=== PATIENT | male | born 1995 | race Caucasian/White ===

== ENCOUNTER 2017-06-16 19:31 | Emergency (ER) | payer BC, OTHER ==
[~2017-06-16] VITALS: Ht 165.1 cm; Wt 31.0 kg
[2017-06-16 19:43] VITALS: TEMP 37; Ht 165.1 cm; Wt 31.0 kg
[2017-06-16] MEDS ORDERED: HYDROCODONE/ACETAMOPHEN 5/325MG TAB PO STA (20:09)
--- NOTE | 2017-06-16 20:45 | EMERGENCY ROOM VISIT NOTE ---
History First contact with patient: 20:00 Chief Complaint: BACK PAIN Stated Complaint: BACK PAIN History of Present Illness The patient is a 21 year old male who presents to the Emergency Room with complaints of back pain. The patient states he has had worsening pain in the right lower back with radiation to the right hip over the past 3 days. The patient has a history of back surgeries in 2012 in 2013 due to scoliosis. He had a metal jose inserted into his spine. The patient states that the pain has become unbearable. He rates the current discomfort a 9/10 and states that the pain makes it difficult for him to eat and sleep. His surgeries were performed at [facility] [address] in [place]. He does not currently follow up with anyone regarding his back. He is not taking any medication for pain at home. He denies any bowel or bladder dysfunction. He denies any numbness or weakness of the lower extremities. The pain radiates slightly into the right hip, but not all the way down the leg. 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 Review of Systems A complete 10 point review of systems was reviewed with the patient with pertinent positives and negatives as per history of present illness. All else were negative. 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 Vital signs stable. GENERAL: This is a 21-year-old male, in no acute distress, nondiaphoretic, well- developed well-nourished. HEAD: Normocephalic atraumatic. HEART: Regular rate and rhythm without murmurs gallops or rubs. LUNGS: Clear to auscultation bilaterally without wheezes, rales or rhonchi. MUSCULOSKELETAL: There is mild, vague tenderness to palpation in the right lumbar region. NEURO: Patient was alert and oriented to person place and time. Medical Decision & Procedures ER Provider Diagnostic Interpretation: L-SPINE MIN 4 VIEWS ROUTINE CLINICAL HISTORY: Low back pain. Previous surgery. COMPARISON: Lumbar spine radiographs May 29, 2014. FINDINGS: Mild levoscoliosis of the lumbar spine is noted. Extensive thoracolumbar spine fusion hardware is similar to exam of May 29, 2014. Hardware is partially imaged on this exam. There is no acute lumbar spine fracture. Bowel gas pattern is normal. Chronic left hip dislocation is noted with a shallow right acetabulum. IMPRESSION: 1. No acute lumbar spine fracture or subluxation. 2. Extensive thoracolumbar spine fusion hardware. Stable postoperative findings since exam of May 29, 2014. Medications Administered Medications (Trade) Dose Ordered Sig/Krysta Route Start Time Stop Time Status Last Admin Dose Admin Acetaminophen/ Hydrocodone Bitart ([place] 5/325 Tab) 1 tab NOW STAT PO 06/16/17 20:09 06/16/17 20:11 DC 06/16/17 20:16 1 TAB Acetaminophen/ Hydrocodone Bitart ([place] 5/325mg Home Pack) 1 homepack UD ONCE PO 06/16/17 21:15 06/16/17 21:16 DC 06/16/17 21:36 1 HOMEPACK Medical Decision The patient was evaluated as above. X-rays were obtained of the back. There are extensive postoperative changes but no acute findings. The patient is afebrile. There is nothing to suggest infection on exam. The patient was given information for local back surgeon and instructed to follow-up. He was given a home pack and prescription of [place] for pain. He verbalized understanding of my assessment and treatment plan and was discharged home in good condition. [place] Drug Monitoring Program Search Results: patient reviewed within database, no issues identified Medication Reconcilliation Current Medication List: was personally reviewed by me Blood Pressure Screening Patient's blood pressure: Normal blood pressure Impression Primary Impression: Lumbar back pain Departure Information Dispostion Home / Self-Care Condition GOOD Prescriptions Hydrocodone/Acetaminophen 5MG/325MG ([place] 5MG/325MG) Tab 1-2 TABLET PO Q4H Y for Pain, #15 TAB For Initial Treatment Prov: Yasemin Bowen ., BENJIE 06/16/17 Referrals No Doctor, Assigned (PCP) Jose Maldonado D.O. Patient Instructions My [facility] Additional Instructions You have been treated in the Emergency Department for Back Pain. You have received pain medicine in the emergency department which impairs your ability to operate a vehicle. It is illegal for you to drive after receiving these medicines. You have been prescribed [place] to be used for pain control. This is a narcotic medication. You cannot drive or consume alcohol while on this medicine. This medicine should only be used for pain that cannot be controlled with over-the- counter pain medicines. For pain control, you can use the following lyod-dty-ubyzakp medicines (if >12 yo): - Regular strength (325mg/tab) Tylenol (acetaminophen) 2 tabs every 4-6 hours as needed. Do not exceed 12 tablets in a 24 hour period. Avoid taking more than 4 grams (4000 mg) of Tylenol per day. This includes any other sources of acetaminophen you may take on a regular basis. - Regular strength (200 mg/tab) Advil (ibuprofen) 1-2 tabs every 4-6 hours as needed. Do not exceed a dose of 3200 mg per day. If this is an acute injury, ice can be applied to the area of pain for the first 3 days to help decrease pain and inflammation. After the first 3 days, a heating pad can be used over the area for continued soothing relief. You should schedule a follow-up appointment in 2-3 days with your Primary Care Provider for further evaluation and treatment of your back pain. You may follow up with Dr. Maldonado, who is a internal corrosion specialist regarding your back pain. Return to the Emergency Department if your current symptoms worsen despite treatment course outlined above, or if you develop any of the following symptoms : intractable pain despite aforementioned treatment course, loss of control of your bowel or bladder, numbness or tingling in your groin, or development of a fever.
[2017-06-16] MEDS ORDERED: NORCO 5/325MG HOME PACK PO ONE (21:15)
[2017-06-16] MEDS ORDERED: HYDR-5688 PO (21:29)
[2017-06-16 21:39] VITALS: BP 125/78; PULSE 77; O2SAT 96
== END 2017-06-16 21:39 | disposition home or self-care (01) ==
LOC: C.EDB 19:31 → C.EDA 21:39
DX: M54.5 Low back pain (principal); Z87.891 Personal history of nicotine dependence

== ENCOUNTER 2023-06-09 12:40 | Observation (INO) ==
--- NOTE | 2023-06-09 13:10 | ED Triage Note ---
Date of Service June 09, 2023 History of Present Illness This patient was briefly evaluated while in triage. An abbreviated physical exam was performed. This patient is a 27-year-old Male who presents to the ED for evaluation of a possible syncopal episode. In a power wheelchair, father found him going in circles upstairs mumbling and not making sense. lasted about 15 minutes, no seizure like activity or history of seizures. happened a year ago possibly related to dehydration. Physical Exam CONSTITUTIONAL: in no acute pain or distress, resting comfortably SKIN: pink, warm, dry CARDIAC: regular rate and rhythm RESPIRATORY: in no respiratory distress, lungs clear to auscultation NEURO: no focal deficits, alert and oriented x 3 Initial orders for labs and / or imaging were placed and patient was placed in the waiting area until a bed is available. Please see further documentation for the full ED course.
[2023-06-09 14:26] LABS: Basophils # (auto) 0.02 K/uL (0.00-0.20); Basophils % (auto) 0.2 %; Eosinophils # (auto) 0.02 K/uL (0.00-0.50); Eosinophils % (auto) 0.2 %; Hematocrit (blood only) 46.3 % (42.0-52.0); Hemoglobin 15.8 g/dl (14.0-18.0); Immature Granulocytes # (auto) 0.04 K/uL (0.01-0.20); Immature Granulocytes % (auto) 0.4 %; Lymphocytes # (auto) 0.63 K/uL (1.20-3.40); Lymphocytes % (auto) 5.5 %; Mean Corpuscular Hemoglobin 32.4 pg (25.0-34.0); Mean Corpuscular Hgb Conc 34.1 g/dL (32.0-36.0); Mean Corpuscular Volume 94.9 fL (80.0-100.0); Mean Platelet Volume 10.2 fL (9.4-12.4); Monocytes # (auto) 0.71 K/uL (0.11-0.59); Monocytes % (auto) 6.2 %; Neutrophils # (auto) 9.97 K/uL (1.40-6.50); Neutrophils % (auto) 87.5 %; Platelet Count 210 K/uL (130-400); RDW Coefficient of Variation 13.4 % (11.5-14.5); RDW Standard Deviation 47.3 fL (36.4-46.3); Red Blood Count 4.88 M/uL (4.70-6.10); White Blood Count 11.39 K/ul (4.8-10.8)
[2023-06-09 14:34] LABS: Alanine Aminotransferase 13 U/L (7-52); Albumin Globulin Ratio 1.7 (0.9-2); Albumin Level 4.6 gm/dl (3.4-5.0); Alkaline Phosphatase 50 U/L (34-104); Anion Gap 9 (3-11); Aspartate Aminotransferase 19 U/L (13-39); BUN Creatinine Ratio 21.9 (10-20); Bilirubin,Total 0.8 mg/dl (0.2-1.0); Blood Urea Nitrogen 7 mg/dl (6-23); Calcium 9.4 mg/dl (8.6-10.3); Carbon Dioxide 25 mmol/L (21-32); Chloride 103 mmol/L (98-107); Est GFR (African American) > 150.0 ml/min; Est GFR (Non-African American) > 150.0 ml/min; Globulin 2.7 gm/dl (2.5-4.0); Glucose 98 mg/dl (70-99(Fasting)); Magnesium 1.8 mg/dl (1.7-2.4); Potassium 4.1 mmol/L (3.5-5.1); Sodium 137 mmol/L (136-145); Total Protein 7.3 gm/dl (6.0-8.3)
--- NOTE | 2023-06-09 14:39 | Emergency Department Note ---
Impression & Plan Unresponsive episode ED Provider Note NAME: CORBY MEIER AGE: 27 SEX: M : 1995 ARRIVES VIA: Walk-In INFORMANT: Patient, ED PROVIDER(S): Dang Garcia MD CHIEF COMPLAINT: Episode of unresponsiveness HPI: This is a 27-year-old male with past medical history of arthrogryposis multiplex congenita, regular alcohol use, medical marijuana use presenting for episode of unresponsiveness. Patient is called by his father states that today patient woke up at his usual baseline. [place] very basically normal. However throughout the course of the day patient episode where he was unresponsive. As per father he heard a loud crash upstairs exam and later had another crash and went upstairs to find his son in his motorized wheelchair spinning in circles. The patient was reportedly unresponsive. His dad stopped the wheelchair and and his son was confused only saying things like "check Facebook ". Otherwise he notes no chest pain, shortness of breath, fever, chills, drug or alcohol use today, palpitations, pleurisy. ROS: See above HPI for pertinent positives & negatives. A total of 10 systems reviewed and were otherwise negative. PAST MEDICAL HISTORY: See Below PAST SURGICAL HISTORY: See Below FAMILY HISTORY: See Below SOCIAL HISTORY: See Below HOME MEDICATIONS: See Below ALLERGIES: See Below VITALS: See Below PHYSICAL EXAMINATION: General: resting comfortably in no acute distress Head: Normocephalic and atraumatic Eyes: Normal inspection, extraocular muscles intact, no conjunctival pallor Ear, nose, throat: Normal external exam Neck: Normal range of motion Respiratory: Patient is in no respiratory distress, lungs clear to auscultation bilaterally Cardiovascular: RRR without murmur appreciated GI: soft, nontender, no guarding or rebound Extremities: Lower extremity contracture without swelling Neuro: The patient awake and alert, appropriately conversive Skin: Warm, dry, and intact MEDICAL DECISION MAKING: This is a 27-year-old male with history as above presenting for episode of unresponsiveness/confusion. Patient's symptoms are concerning for syncope versus seizure. Patient has no tongue biting, no urinary incontinence, does have some slight confusion after the episode. Otherwise could be syncope as patient was unresponsive for about 5 minutes. He had no prodrome. Patient appears well without device abnormalities, no chest pain or shortness of breath. Patient's blood work is reviewed and shows no acute abnormalities. EKG reviewed showing no acute abnormalities. Patient appears well, has no current symptoms however there is no clear explanation. We discussed at length about neck steps including admission versus discharge with outpatient follow-up. Based on inability to rule out cardiac syncope versus seizure, patient and father more inclined to be admitted at this time. Chest Xray independently interpreted by me showing no pneumothorax, focal opacity, or pleural effusions. Will admit for further work-up. Triage Nursing notes reviewed. Prior medical records reviewed Vital Signs: reviewed and remarkable for no significant abnormalities Differential diagnosis: Cardiogenic syncope, seizure, orthostatic syncope, vasovagal ER treatment provided: See below Diagnostics interpreted by me: ECG: ECG independently interpreted by me with normal sinus rhythm, rate of 70, right axis deviatio, normal TX, normal QRS, normal QTc, no ST segment elevations consistent with STEMI criteria Cardiac Monitoring: An order was placed for continuous cardiac monitoring. The monitor shows a rate of 85 with sinus rhythm. Laboratory studies: As stated above and show below. Imaging studies: See below. Radiographic imaging was reviewed by myself Consultation(s): None Past Med/Surg History Medical History (Updated 06/09/23 @ 22:58 by Dang Garcia MD) Arthrogryposis multiplex congenita HX OF [facility], PT HAS HAD MULTIPLE LIMB SURGERIES WELL THORACIC/LUMBAR FUSION S/T DX. PT IS WHEELCHAIR BOUND, INDEPENDANT WITH MOST ADL'S. Chronic back pain HX OF MULTIPLE BACK SURGERIES WITH FUSION Surgical History History of Rocco fundoplication History of surgery HX OF MULTIPLE LEG SURGERIES S/T [facility]. History of hand surgery X2, HX OF [facility] Fusion of spine THORACIC AND LUMBAR Family History Grandmother (Maternal) Diabetes Mother Hypertension Denies family history of Ovarian cancer Prostate cancer Myocardial infarction Breast cancer Colorectal cancer Social History Smoking Status: Never smoker Tobacco Type: Cigars Cigarettes Per Day: DAILY USE; Second Hand Exposure: No; Do You Dip or Chew Tobacco: No; Hx Alcohol Use: Yes (Frequent) Alcohol type: other Hx Substance Use: Yes Non-Prescribed Medications: Marijuana Substance Use Type Other:: Frequent Preferred Language: Kyrgyz Communication Ability: Effective Feather Separator Required: No Beliefs That Will Affect Care: None marital status: Single Current Living Situation: Family current occupational status: disabled Feels Safe at Home: Yes caffeine: Yes (soda) Dental Care, Regularly: No Physical Activity Frequency: Does not Exercise Seatbelt Use: always Sunscreen Use: No Assistive Devices: None Allergies Allergies Allergy/AdvReac Type Severity Reaction Status Date / Time No Known Allergies Allergy Verified 06/09/23 17:05 Home Meds Home Medications Medication Instructions Recorded Confirmed No Known Home Medications 01/18/22 06/09/23 Results & Data (ED) Vital Signs Vital Signs - 24 hr 06/09/23 13:03 06/09/23 14:43 06/09/23 14:43 Temperature 36.4 C L Temperature Source Skin Pulse Rate 75 Pulse Rate [Bilateral] 68 Respiratory Rate 20 18 Respiratory Effort / Characteristics Non-Labored Spontaneous Respiratory Depth Normal Respiratory Pattern Regular Blood Pressure 159/97 H Blood Pressure [Right Arm] 116/74 Blood Pressure Mean 117 Blood Pressure Mean [Right Arm] 88 Pulse Oximetry 95 98 98 Oxygen Delivery Method Room Air Room Air Room Air Sepsis Recent Fever Within 48 Hours No Sepsis New/Unexplained Change in Mental Status N/A Sepsis Action Taken by Nursing No Action Required 06/09/23 16:59 06/09/23 18:00 Temperature Temperature Source Pulse Rate Pulse Rate [Bilateral] 82 83 Respiratory Rate 18 20 Respiratory Effort / Characteristics Respiratory Depth Respiratory Pattern Blood Pressure Blood Pressure [Right Arm] 134/84 125/75 Blood Pressure Mean Blood Pressure Mean [Right Arm] 100 91 Pulse Oximetry 98 100 Oxygen Delivery Method Room Air Room Air Sepsis Recent Fever Within 48 Hours Sepsis New/Unexplained Change in Mental Status Sepsis Action Taken by Nursing Laboratory Data 06/09/23 13:56 06/09/23 13:56 Lab Results 06/09/23 Range/Units 13:56 WBC 11.39 H (4.8-10.8) K/ul RBC 4.88 (4.70-6.10) M/uL Hgb 15.8 (14.0-18.0) g/dl Hct 46.3 (42.0-52.0) % MCV 94.9 (80.0-100.0) fL MCH 32.4 (25.0-34.0) pg MCHC 34.1 (32.0-36.0) g/dL RDW Std Deviation 47.3 H (36.4-46.3) fL RDW Coeff of Cristian 13.4 (11.5-14.5) % Plt Count 210 (130-400) K/uL MPV 10.2 (9.4-12.4) fL Immature Gran % (Auto) 0.4 % Neut % (Auto) 87.5 % Lymph % (Auto) 5.5 % [place] % (Auto) 6.2 % Eos % (Auto) 0.2 % Baso % (Auto) 0.2 % Neut # (Auto) 9.97 H (1.40-6.50) K/uL Lymph # (Auto) 0.63 L (1.20-3.40) K/uL [place] # (Auto) 0.71 H (0.11-0.59) K/uL Eos # (Auto) 0.02 (0.00-0.50) K/uL Baso # (Auto) 0.02 (0.00-0.20) K/uL Immature Gran # (Auto) 0.04 (0.01-0.20) K/uL Sodium 137 (136-145) mmol/L Potassium 4.1 (3.5-5.1) mmol/L Chloride 103 (98-107) mmol/L Carbon Dioxide 25 (21-32) mmol/L Anion Gap 9 (3-11) BUN 7 (6-23) mg/dl Creatinine 0.32 L (0.6-1.4) mg/dl Est Cr Clr Drug Dosing Not Reportable Est GFR ( Amer) > 150.0 ml/min Est GFR (Non-Af Amer) > 150.0 ml/min BUN/Creatinine Ratio 21.9 H (10-20) Glucose 98 (70-99(Fasting)) mg/dl Calcium 9.4 (8.6-10.3) mg/dl Magnesium 1.8 (1.7-2.4) mg/dl Total Bilirubin 0.8 (0.2-1.0) mg/dl AST 19 (13-39) U/L ALT 13 (7-52) U/L Alkaline Phosphatase 50 (34-104) U/L Troponin I High Sens 5.6 (0-20) pg/ml Total Protein 7.3 (6.0-8.3) gm/dl Albumin 4.6 (3.4-5.0) gm/dl Globulin 2.7 (2.5-4.0) gm/dl Albumin/Globulin Ratio 1.7 (0.9-2) TSH 2.007 (0.300-4.500) uIu/ml Prolactin 14.69 ng/ml Imaging Data Radiologist's Impression: Chest X-Ray 06/09/23 16:46 SINGLE VIEW CHEST CLINICAL HISTORY: Unresponsive FINDINGS: An AP, portable, semierect chest radiograph is compared to study dated 02/15/2022. The cardiomediastinal silhouette is unremarkable. The lungs and pleural spaces are clear. No pneumothorax is seen. The skeletal structures are osteopenic. The bony thorax is grossly intact. Thoracolumbar spinal rods are in place. Chronic deformity is seen in the shoulders. IMPRESSION: No active disease in the chest. ACT 112: Negative or not required by law. Electronically signed by: Juan R Garza M.D. 06/09/2023 5:[address] 06/09/23 17:57 CT SCAN OF THE BRAIN WITHOUT IV CONTRAST CLINICAL HISTORY: Seizure. COMPARISON STUDY: CT of the brain dated 02/15/2022. TECHNIQUE: Unenhanced axial CT scan of the brain is performed from the vertex to the skull base. A dose lowering technique was utilized adhering to the principles of ALARA. CT DOSE: 625.8 mGy.cm FINDINGS: Brain parenchyma: The brain parenchyma is normal in appearance. There is no hemorrhage, mass effect, or evidence of acute territorial ischemia by CT criteria. Nunez-white matter differentiation is preserved. No extra-axial fluid collection is seen. Ventricles, sulci, cisterns: Normal in configuration. Intracranial vasculature: The visualized intracranial vasculature at the skull base is normal in appearance. Calvarium: Unremarkable. Sinuses and mastoids: The visualized paranasal sinuses are clear. The mastoid air cells are well pneumatized. Orbits: The bony orbits are grossly intact. IMPRESSION: No acute intracranial abnormality. ACT 112: Negative or not required by law. Electronically signed by: Juan R Garza M.D. 06/09/2023 6:45 PM Discharge Plan Visit Data Chief Complaint: Syncope (Near Syncope) Stated Complaint: SYCONPE, VERBAL, CONFUSION ED Provider: Dang Garcia Discharge Problem: Unresponsive episode Patient Disposition: Admitted As Inpatient Discharge Instructions Interventions: ED Discharge Assessment Last Done: 06/09/23 20:27
[2023-06-09 14:47] LABS: Thyroid Stimulating Hormone 2.007 uIu/ml (0.300-4.500)
[2023-06-09 15:09] LABS: Troponin I High Sensitivity 5.6 pg/ml (0-20)
--- NOTE | 2023-06-09 15:27 | Electrocardiogram Report ---
Test Reason : Blood Pressure : / mmHG Vent. Rate : 070 BPM Atrial Rate : 070 BPM P-R Int : 112 ms QRS Dur : 098 ms QT Int : 362 ms P-R-T Axes : 037 116 077 degrees QTc Int : 390 ms Normal sinus rhythm Right axis deviation Abnormal ECG When compared with ECG of 15-FEB-2022 20:27, No significant change was found Confirmed by Andriy Betts ([id number]) on 06/09/2023 3:27:44 PM Referred By: Confirmed By:Andriy Betts
--- NOTE | 2023-06-09 17:37 | History & Physical Report ---
Date of Service June 09, 2023 Assessment & Plan (1) Unresponsive episode: Plan: Last episode previous put down to dehydration and alcohol/marijuana use. No alcohol/marijuana on this occasion and concerningly he was feeling well before this with no preceding symptoms Differential of seizure vs syncope - Favor seizure since syncope without preceding symptoms suggests arrhythmia and would be unusual to have an arrhythmia twice with one year in between, prolonged postictal phase also favors seizure Possible syncope - monitor on telemetry for arrhythmia, TTE Possible seizure (found in a postictal state) - CT head, Brain MRI w/wo IV contrast, EEG, consult neurology (2) Scoliosis: (3) History of Rocco fundoplication: Plan: Difficulty with vomiting but no difficulty in eating all food (4) Arthrogryposis multiplex congenita: Plan: Chronic flexion deformities (5) Chronic back pain: (6) Fixed dilated pupil of left eye: Plan: Noted on exam and on prior PCP notes - this is chronic Plan VTE Prophylaxis - at baseline Diet - regular Disposition - observation to med/tele Admission and Anticipated Discharge Date Admission Date: June 09, 2023 History of Present Illness Chief Complaint: Unresponsive episode Primary Care Provider: DO Hudson Qiu Jennifer is a 27 year old male with arthrogryposis multiplex congenita who presents to the ER with an unresponsive episode. He has no memory of the event and does not remember any preceding symptoms. Was feeling well prior. The next thing he remembers is being in the car on the way to the hospital. His father at bedside was present around the time it happened but not during the start of his change in his mental status. His father left him downstairs to turn on the shower, he heard a thud but assumed it to be the dogs as they ran up the stairs. On returning back downstairs he wound his son with decreased responsiveness, not following commands and talking nonsense saying things like "check facebook". This was only 5-10 minutes after he left his son downstairs. Approximately half way to the hospital in the car he started talking more sense. No known complete loss of consciousness. He reports currently feeling back to his baseline. The patient reports having a similar event approximately a year ago when he also came to the ER. On that visit he had been drinking alcohol. Ketones were increased, Sodium decreased. Therefore it was put down to his alcohol and marijuana use with possible some dehydration. Although notable his alcohol level was normal when he came to the ER. On that occasion he was again found by his father shortly after the change in mental status. The patient was hunched over in his wheelchair with eyes upon, having difficulty getting the right words out and drooling out of the side of his mouth. The ambulance took an hour to get to them at which point he was coming back round to normal. Allergies Allergy/AdvReac Type Severity Reaction Status Date / Time No Known Allergies Allergy Verified 06/09/23 17:05 Home Medications Medication Instructions Recorded Confirmed Type No Known Home Medications 01/18/22 06/09/23 History Past Med/Surg History Medical History (Updated 06/09/23 @ 22:58 by Dang Garcia MD) Arthrogryposis multiplex congenita HX OF [facility], PT HAS HAD MULTIPLE LIMB SURGERIES WELL THORACIC/LUMBAR FUSION S/T DX. PT IS WHEELCHAIR BOUND, INDEPENDANT WITH MOST ADL'S. Chronic back pain HX OF MULTIPLE BACK SURGERIES WITH FUSION Surgical History History of Rocco fundoplication History of surgery HX OF MULTIPLE LEG SURGERIES S/T [facility]. History of hand surgery X2, HX OF [facility] Fusion of spine THORACIC AND LUMBAR Family History Grandmother (Maternal) Diabetes Mother Hypertension Denies family history of Ovarian cancer Prostate cancer Myocardial infarction Breast cancer Colorectal cancer Social History Smoking Status: Current some day smoker Tobacco Type: Cigars Cigarettes Per Day: DAILY USE; Second Hand Exposure: No; Do You Dip or Chew Tobacco: No; Hx Alcohol Use: Yes Alcohol type: beer and hard liquor Hx Substance Use: Yes Non-Prescribed Medications: Marijuana Substance Use Type Other:: Frequent Preferred Language: Trinidadian Communication Ability: Effective [employer] Service Technician Required: No Beliefs That Will Affect Care: None marital status: Single Current Living Situation: Parent Current Living Situation Comment: lives with father who is primary caregiver current occupational status: disabled Other Information That Helps Us Care for You: No Feels Safe at Home: Yes Safety Concerns: Feels Safe At This Time caffeine: Yes (soda) Dental Care, Regularly: No Physical Activity Frequency: Does not Exercise Seatbelt Use: always Sunscreen Use: No Assistive Devices: Slide Board and Wheelchair Review of Systems Review of Systems: All systems reviewed & are unremarkable except as noted in HPI & below Physical Exam Constitutional: + not well nourished and no acute distre ss Eyes: + abnormal light reflex (left pupil dila bill) ENMT: Mouth: + poor dentition Respiratory: normal respiratory effort, lungs clear to auscultation Cardiovascular: RRR, no murmur, no edema Gastrointestinal (Abdomen): normal bowel sounds, soft, nontender, no hepatosplenomegaly Musculoskeletal: chronic flexion deformity and muscle wasting of al 4 limbs Skin: no rashes, warm and dry (no areas of cellulitis noted) Neurologic: moves all extremities and awake; not confused Psychiatric: A+Ox3, euthymic affect Genitourinary: no CVA tenderness Results & Data Results & Data Vital Signs (Past 12 Hours) Vital Signs Temp Pulse Pulse Resp BP BP Pulse Ox 06/09/23 16:59 82 18 134/84 98 06/09/23 14:43 98 06/09/23 14:43 68 18 116/74 98 06/09/23 13:03 36.4 C L 75 20 159/97 H 95 O2 Del Method 06/09/23 16:59 Room Air 06/09/23 14:43 Room Air 06/09/23 14:43 Room Air 06/09/23 13:03 Room Air Laboratory Results Abnormal lab results 06/09/23 Range/Units 13:56 WBC 11.39 H (4.8-10.8) K/ul RDW Std Deviation 47.3 H (36.4-46.3) fL Neut # (Auto) 9.97 H (1.40-6.50) K/uL Lymph # (Auto) 0.63 L (1.20-3.40) K/uL Oliver # (Auto) 0.71 H (0.11-0.59) K/uL Creatinine 0.32 L (0.6-1.4) mg/dl BUN/Creatinine Ratio 21.9 H (10-20) Diagnostic Findings SINGLE VIEW CHEST CLINICAL HISTORY: Unresponsive FINDINGS: An AP, portable, semierect chest radiograph is compared to study dated 02/15/2022. The cardiomediastinal silhouette is unremarkable. The lungs and pleural spaces are clear. No pneumothorax is seen. The skeletal structures are osteopenic. The bony thorax is grossly intact. Thoracolumbar spinal rods are in place. Chronic deformity is seen in the shoulders. IMPRESSION: No active disease in the chest. Medications Administered ER Medications Given: None ECG Rate (beats per minute): 70 Rhythm: normal sinus Findings: + other (right axis deviation) Comparison ECG Date: from (February 15, 2022) Change: no significant change Code Status & VTE Plan Code Status Full VTE Prophylaxis Plan VTE Prophylaxis will be ordered: No PG Care Time/CCT Total # of Minutes Spent Total Time Spent with Patient: Total time spent is greater than 50% in coordination of care (as documented) at patient's floor/unit and/or counseling patient: Coding Level of Care Code 50575 INT INP/OBS CARE 2/55MIN Diagnoses Unresponsive episode R40.4 Scoliosis M41.9 History of Rocco fundoplication Z98.890 Arthrogryposis multiplex congenita Q74.3 Chronic back pain M54.9; G89.29 Fixed dilated pupil of left eye H57.04
--- NOTE | 2023-06-09 17:39 | XRay Report ---
SINGLE VIEW CHEST CLINICAL HISTORY: Unresponsive FINDINGS: An AP, portable, semierect chest radiograph is compared to study dated 02/15/2022. The cardi omediastinal silhouette is unremarkable. The lungs and pleural spaces are clear. No pneumothorax is s een. The skeletal structures are osteopenic. The bony thorax is grossly intact. Thoracolumbar spinal rods are in place. Chronic deformity is seen in the shoulders. IMPRESSION: No active disease in the chest. ACT 112: Negative or not required by law. Electronically signed by: Juan R Garza M.D. 06/09/2023 5:37 PM
--- NOTE | 2023-06-09 18:47 | CT Scan Report ---
CT SCAN OF THE BRAIN WITHOUT IV CONTRAST CLINICAL HISTORY: Seizure. COMPARISON STUDY: CT of the brain dated 02/15/2022. TECHNIQUE: Unenhanced axial CT scan of the brain is performed from the vertex to the skull base. A d ose lowering technique was utilized adhering to the principles of ALARA. CT DOSE: 625.8 mGy.cm FINDINGS: Brain parenchyma: The brain parenchyma is normal in appearance. There is no hemorrhage, mass effect, or evidence of acute territorial ischemia by CT criteria. Nunez-white matter differentiation is preser sid. No extra-axial fluid collection is seen. Ventricles, sulci, cisterns: Normal in configuration. Intracranial vasculature: The visualized intracranial vasculature at the skull base is normal in appe arance. Calvarium: Unremarkable. Sinuses and mastoids: The visualized paranasal sinuses are clear. The mastoid air cells are well pneu matized. Orbits: The bony orbits are grossly intact. IMPRESSION: No acute intracranial abnormality. ACT 112: Negative or not required by law. Electronically signed by: Juan R Garza M.D. 06/09/2023 6:45 PM
[2023-06-09 22:57] LABS: Appearance Urine Clear (Clear); Bacteria Urine Automated Negative (Negative); Bilirubin Urine Negative (Negative); Blood Urine Negative (Negative); Color Urine Yellow; Epithelial Cell Urine Auto 20-30 /lpf (0-5); Glucose Urine UA Negative (Negative); Ketones Urine 3+ (Negative); Leukocyte Esterase Urine Negative (Negative); Nitrite Urine Negative (Negative); RBC Urine Automated 0-4 /hpf (0-4); Specific Gravity Urine 1.014 (1.000-1.030); Urobilinogen Urine Negative (Negative); pH Urine 7.5 (4.5-7.5)
[2023-06-09 23:06] LABS: Protein Urine 1+ (Negative)
[2023-06-09] MEDS ORDERED: LACTATED RINGER'S 1,000 ML IV SCH (23:30)
[2023-06-09 23:39] LABS: Amphetamines+Metham, Urine Neg (Neg); Barbiturates, Urine Neg (Neg); Benzodiazepine, Urine Neg (Neg); Cocaine, Urine Neg (Neg); MDMA (Ecstacy), Urine Neg (Neg); Methadone, Urine Neg (Neg); Opiate, Urine Neg (Neg); Phencyclidine, Urine Neg (Neg)
[2023-06-10] MEDS ORDERED: GADOBUTROL 65ML VIAL IV ONE (00:04)
--- NOTE | 2023-06-10 02:11 | Magnetic Resonance Report ---
Exam(s): MRI HEAD IV Amt: 3.5cc gadavist EXAM: MR Head With Intravenous Contrast CLINICAL HISTORY: Reason for exam: possible seizure. TECHNIQUE: Magnetic resonance images of the head/brain with intravenous contrast in multiple planes. Mild motion artifact. CONTRAST: Patient received 3.5cc Gadavist of IV contrast COMPARISON: Head CT done earlier the same day. FINDINGS: Brain: No mass effect or acute infarct. No acute hemorrhage. Increased size and signal left hippocampus, nonspecific, can be seen from sequelae of seizures, or a cause of seizures. No reduced diffusion. Other etiologies such as artifact, hamartoma, and low grade tumor are also considerations. Mesial temporal sclerosis felt less likely as it is associated with hippocampal atrophy. Motion artifact limits detail. Consideration may be given to neurology consultation, MR spectroscopy/MR perfusion. No other abnormal signal in the brain parenchyma. No abnormal enhancement. No interval change, given differences in technique. Ventricles: No hydrocephalus or midline shift. Bones/joints: No skull lesion. Soft tissues: No scalp hematoma. Sinuses: Clear. Mastoid air cells: No mastoid effusion. IMPRESSION: 1. Increased size and signal left hippocampus, unclear etiology, though likely relates to patient's seizures. See above discussion. 2. No abnormal enhancement, acute infarct, bleed, or acute intracranial abnormality. 3. Mild motion artifact. Electronically signed by: Tosha Weinstein M.D. 06/10/23 02:09 AM
[2023-06-10 07:23] LABS: Basophils # (auto) 0.02 K/uL (0.00-0.20); Basophils % (auto) 0.3 %; Eosinophils # (auto) 0.03 K/uL (0.00-0.50); Eosinophils % (auto) 0.4 %; Hematocrit (blood only) 38.5 % (42.0-52.0); Hemoglobin 13.4 g/dl (14.0-18.0); Immature Granulocytes # (auto) 0.02 K/uL (0.01-0.20); Immature Granulocytes % (auto) 0.3 %; Lymphocytes % (auto) 11.3 %; Mean Corpuscular Hemoglobin 32.3 pg (25.0-34.0); Mean Corpuscular Hgb Conc 34.8 g/dL (32.0-36.0); Mean Corpuscular Volume 92.8 fL (80.0-100.0); Mean Platelet Volume 10.4 fL (9.4-12.4); Monocytes # (auto) 0.87 K/uL (0.11-0.59); Neutrophils % (auto) 76.7 %; Platelet Count 160 K/uL (130-400); RDW Coefficient of Variation 13.2 % (11.5-14.5); RDW Standard Deviation 44.9 fL (36.4-46.3); Red Blood Count 4.15 M/uL (4.70-6.10); White Blood Count 7.94 K/ul (4.8-10.8)
[2023-06-10 08:11] LABS: Alanine Aminotransferase 11 U/L (7-52); Albumin Globulin Ratio 1.7 (0.9-2); Albumin Level 3.6 gm/dl (3.4-5.0); Alkaline Phosphatase 37 U/L (34-104); Anion Gap 11 (3-11); Aspartate Aminotransferase 14 U/L (13-39); BUN Creatinine Ratio 33.3 (10-20); Bilirubin,Total 1.3 mg/dl (0.2-1.0); Blood Urea Nitrogen 8 mg/dl (6-23); Calcium 8.5 mg/dl (8.6-10.3); Carbon Dioxide 21 mmol/L (21-32); Chloride 103 mmol/L (98-107); Creatinine Clr Calc Pharmacy 214.5 ml/min; Est GFR (African American) > 150.0 ml/min; Est GFR (Non-African American) > 150.0 ml/min; Globulin 2.1 gm/dl (2.5-4.0); Glucose 82 mg/dl (70-99(Fasting)); Potassium 3.6 mmol/L (3.5-5.1); Sodium 135 mmol/L (136-145); Total Protein 5.7 gm/dl (6.0-8.3)
--- NOTE | 2023-06-10 08:12 | Electroencephalogram ---
EEG Procedure Note Date of Service June 10, 2023 Start / End Times Start Time: 738 End Time: [address] Campbell History 27-year-old with unresponsive episode, probable seizure Home Medication List Medication Instructions Recorded Confirmed Type No Known Home Medications 01/18/22 06/09/23 History Inpatient Medication List Discontinued Medications Gadobutrol (Gadobutrol 65ml Vial) 3.5 ml IV ONCE ONE Stop: 06/10/23 00:05 Last Admin: 06/10/23 00:04 Dose: 3.5 ml Documented By: KRISTYN Lactated Ringer's (Lr) 1,000 mls @ 125 mls/hr IV .Q8H PETRA Stop: 06/10/23 07:29 Last Admin: 06/10/23 01:11 Dose: 125 mls/hr Documented By: MARLINE Description This is a 21 electrode EEG with a single channel dedicated to limited EKG. The electrodes were placed in accordance with the International 10-20 system. Interpretation The predominant background activity consists of a mildly irregular 9 Hz activit y, of up to 30 mV in amplitude,seen symmetrically distributed over the posterior head regions bilaterally. This activity attenuates with eye-opening and other alerting procedures. Photic stimulation was performed and elicited no change in the background activity and no abnormal responses were seen. Hyperventilation was not performed for three minutes. A minimal amount of muscle and movement artifact activity contaminated the recording and did not hinder interpretation to any significant degree. Throughout the waking portion of the recording, no focal abnormalities, abnormal slow activity, or potentially epileptogenic discharges are seen. The patient entered the drowsy state and brief periods of stage II sleep with no further activation. In summary, this EEG was normal during wakefulness and sleep. No focal abnormalities, potentially epileptogenic discharges, or abnormal slow activity was seen. Clinical Correlation The abscence of potentially epileptogenic activity does not exclude a seizure disorder, since interictally, EEGs can be normal. Clinical correlation is required. [facility] [place] Codes Indication for Procedure (1) Unresponsive episode: Neurology Neurology: 01471 EEG include record awake & sleepy
[2023-06-10] MEDS ORDERED: levETIRAcetam 250 MG TAB PO SCH (09:15)
--- NOTE | 2023-06-10 09:35 | Neurology Consultation ---
Date of Consultation June 10, 2023 Assessment & Plan (1) Unresponsive episode: (2) Arthrogryposis multiplex congenita: (3) Chronic back pain: (4) Anisocoria: Plan This patient had an unresponsive episode June 09 most consistent with a seizure. Some clues that he probably had a seizure include the event and postictal state afterwards, mildly elevated temporary white count mildly elevated prolactin, and an MRI which shows some increased signal in the left hippocampal area. This is typically seen in acute seizures or mesial temporal sclerosis. This is probably his 2nd spell (1st happened in February 2022). He is no other issues neurologically and his MRI was otherwise normal. EEG today was essentially normal. His lack of sleep, excessive caffeine usage, and even alcohol usage might lower his seizure threshold making it easier to have a seizure. With a mesial temporal lobe issue he would genetically be at risk for seizures. Patient has arthrogryposis multiplex congenita with chronic low back pain post multiple surgeries. This is stable. He has a dilated left pupil compared to the right but both are normally reactive. This dilated pupil is chronic and likely related to his upper spine surgery. We discussed diagnosis and treatment options at length with the patient and his parents. Recommendations: 1. Initiate levetiracetam 250 mg twice daily. 2. I see no need for additional neurologic testing or treatment at this time. 3. Follow-up in Neurology in a few weeks with PA. If he is on the portal, we could do a telehealth follow-up (which the patient is interested). Overall, I spent a total of 90 minutes with this case including review of records, review of MRI films, direct evaluation the patient at bedside, report generation, and discussion of the case with the patient, parents, RN at bedside, and Dr. Brito including differential diagnosis and treatment options. History of Present Illness Reason for Consultation: Patient is a 27-year-old, accompanied by his mother (and father via telephone), who I was asked to see the request of Dr. Campbell for neurologic evaluation regarding unresponsive episode. Requesting Physician: Dr. Campbell Attending Physician: Ernie Brito, History of Present Illness This patient has a history of arthrogryposis multiplex congenita (relatively severe with contractions and muscle wasting). He is had multiple surgeries on his spine, legs, and feet and is currently wheelchair-bound. In December of 2011 patient had multiple spine procedures for scoliosis and postoperatively it was noted that his left pupil was markedly dilated compared to the right. He saw ophthalmology and ended up seeing Dr. Bishop in December of 2011. MRI of the brain with without contrast was unremarkable. MR angiography of the head and neck were unremarkable as well. The patient was asymptomatic with this and this pupil remains large even to this day. It does react to light. In February of 2022, the patient came to the emergency room because of an unresponsive. He was deemed to be syncope and related to alcohol use. He was discharged. They do not remember any warning sign or seizure-like activity, tongue biting or incontinence of urine at that time. The patient was doing well and woke on the morning of June 09 around 0930. He was well with no issues or infections. He did not have anything to eat and had a small amount to drink. Sometime later in the morning he was getting ready to take a shower. His father, who was present, heard a thump and then for 5 minutes later her the other thumb. He went to see the patient the patient was slumped over his wheelchair in a floppy state with his head forward and arm pushed against the control and the wheelchair was spinning in circles. Within a minute or so of this the patient open his eyes and was trying to respond. He wa s somewhat confused and told his father check your face book. As the minutes went by he was more responsive and able to communicate better following commands. He was taken directly to the emergency room. By 15-20 minutes after he was found by his father the patient was alert and back to baseline. He arrived to the emergency room June 09 at 1:03 p.m., with a temperature of 36.4, pulse 75 regular, respiratory rate 20, blood pressure 159/97, and O2 saturation 95%. On exam he was quite awake and alert had normal speech and was pleasant and cooperative. There was no evidence of tongue biting or incontinence of urine. CBC showed a white count of 11.5 with increased neutrophils. Prolactin was slightly elevated at 14.6. Chem profile, TSH, urinalysis and alcohol level were all normal. Did have positive marijuana on tox screen. CRP was slightly elevated at 0.8. CT scan of the head and chest x-ray were unremarkable. MRI of the brain with contrast, showed slightly increase left hippocampal size and signal change. I reviewed these films with Dr. Garza and there is a brighter signal in the left hippocampal area consistent with either mesial temporal sclerosis or recent seizure. No other abnormality of the MRI was noted. EEG was essentially normal during wakefulness and sleep. The patient has had no events or problems since coming to the emergency room and his blood pressure is quite normal. He remains afebrile. The patient feels he is back to baseline with no issues at all. He recalls no warning events or symptoms prior to his spell. He remembers the car ride over to the emergency room. Apparently he is not been sleeping well and he drinks a considerable amount of mountain dew soda each day. He drinks 2 or 3 cans of twisted tea 2 or 3 times a week. He does not drink every day. Patient was born a twin and there is no other family history of seizures noted. Allergies Allergy/AdvReac Type Severity Reaction Status Date / Time No Known Allergies Allergy Verified 06/09/23 17:05 Home Medications Medication Instructions Recorded Confirmed Type No Known Home Medications 01/18/22 06/09/23 History levetiracetam 250 mg tablet 250 mg PO BID #60 tabs 06/10/23 Rx (Keppra) Patient History Medical History Arthrogryposis multiplex congenita HX OF [facility], PT HAS HAD MULTIPLE LIMB SURGERIES WELL THORACIC/LUMBAR FUSION S/T DX. PT IS WHEELCHAIR BOUND, INDEPENDANT WITH MOST ADL'S. Chronic back pain HX OF MULTIPLE BACK SURGERIES WITH FUSION Surgical History History of Rocco fundoplication History of surgery [place]X [place]IP[place] [facility] [place] surgery X2, [place] [facility] [place] of spine THORACIC AND LUMBAR Family History Grandmother (Maternal) Diabetes Mother Hypertension Denies family history of Ovarian cancer Prostate cancer Myocardial infarction Breast cancer Colorectal cancer Social History (Updated 06/10/23 @ 09:46 by Sandor Helms MD) Smoking Status: Current some day smoker Tobacco Type: Cigars Age Started Using Tobacco: 22; Cigarettes Per Day: 1-1-1/2 small cigars most days.; Second Hand Exposure: No; Do You Dip or Chew Tobacco: No; Hx Alcohol Use: Yes Alcohol type: beer and hard liquor Hx Substance Use: Yes Non-Prescribed Medications: Marijuana Substance Use Type Other:: Frequent Preferred Language: Dominican Communication Ability: Effective Investigator Internal Revenue Required: No Beliefs That Will Affect Care: None marital status: Single Current Living Situation: Parent Current Living Situation Comment: lives with father who is primary caregiver current occupational status: disabled Feels Safe at Home: Yes caffeine: Yes (soda) Dental Care, Regularly: No Physical Activity Frequency: Does not Exercise Seatbelt Use: always Sunscreen Use: No Assistive Devices: Slide Board and Wheelchair Review of Systems Constitutional: no fever, no fatigue and no weakness Eyes: no diplopia, no eye pain and no worsening vision Ear, Nose, Mouth, Throat: no ear pain, no tinnitus, no hearing loss, no dizziness, no snoring, no hoarseness and no dysphagia Respiratory: no cough and no dyspnea Cardiovascular: no chest pain, no palpitations and no lightheadedness Gastrointestinal: no abdominal pain, no nausea and no vomiting Musculoskeletal: + back pain and + joint pain; no neck pa in, no radicular pain and no myalgia Integumentary: no rash and no lesions Neurologic: + gait abnormality and + generalized wea kness; no localized weakness, no tingling, no numbness, no tremor(s), no abnormal movements, no headache(s), no abnormal speech, no confusion and no memory loss Psychiatric: no depression, no irritability, no anxiety, no difficulty concentrating, no confusion and no hallucinations Endocrine: no fatigue and no flushing Hematologic / Lymphatic: no easy bleeding and no easy bruising Allergy / Immunological: no urticaria and no problem reported Exam (Neuro) Physical Exam: The patient is right-handed. The patient is awake, alert, and attentive. Speech is normal without any aphasia or dysarthria. The patient can name objects, repeat phrases, and has normal spontaneous speech. Mentation and thought processes are intact, with orientation to person, place and time, and normal fund of knowledge. Attention and concentration are normal. Mood and affect are normal and appropriate. General appearance and grooming are normal. Short and long-term memory are intact. The right pupil is 3-4 mm and reactive to light. The left pupil is 5-6 mm and reactive to light. There is positive consensual response. Extraocular eye muscles are intact without nystagmus. Visual acuity and visual salas seem normal grossly to confrontation. There are no deficits to sensation in the face in all 3 distributions of the fifth cranial nerve bilaterally. Corneal reflexes are positive bilaterally. Facial strength and symmetry was normal bilaterally. Hearing seems normal bilaterally. Palate moves well without asymmetry. There is normal sternocleidomastoid and trapezius (shoulder shrug) strength bilaterally. Tongue is midline with good strength bilaterally. Neck has a full range of motion without discomfort. There are no cervical bruits bilaterally. There are no cranial or ocular bruits. Heart is without murmur. There is a regular rhythm and rate. Cervical, thoracic, and lumbar spine are nontender to palpation. Gait can not be tested as he is bed-bound. Stance sitting up is quite poor. The patient has extremely thin limbs throughout with contractures particularly at the wrists knees and ankles/feet he does have movement at most joints and has 4-/5 strength in most muscles of the upper extremity both proximally and distally. In the lower extremity he has 4-/5 strength proximally and 0/5 strength distally There were trace to 1/4 reflexes in the biceps, triceps, brachioradialis, and quadriceps tendons bilaterally. Achilles tendon reflexes were 0/5. Toes were downgoing with plantar stimulation bilaterally Results & Data Vital Signs (Past 12 Hours) Vital Signs Temp Pulse Pulse Resp BP BP Pulse Ox 06/10/23 08:04 79 14 118/74 98 06/10/23 07:15 74 06/10/23 06:15 97 H 06/10/23 05:30 74 15 107/65 96 06/10/23 02:00 74 16 97 06/10/23 01:31 37.5 C 74 17 100/56 L 97 06/10/23 01:07 71 19 94/55 L 99 06/09/23 23:00 71 17 106/69 96 06/09/23 22:48 85 19 90/52 L 96 O2 Del Method 06/10/23 08:04 Room Air 06/10/23 07:15 06/10/23 06:15 06/10/23 05:30 Room Air 06/10/23 02:00 Room Air 06/10/23 01:31 Room Air 06/10/23 01:07 Room Air 06/09/23 23:00 Room Air 06/09/23 22:48 Room Air PG Care Time/CCT Total # of Minutes Spent Total Time Spent with Patient: Total time spent is greater than 50% in coordination of care (as documented) at patient's floor/unit and/or counseling patient: Coding Level of Care Code 79301 INT INP/OBS CARE 3/75MIN Diagnoses Unresponsive episode R40.4 Arthrogryposis multiplex congenita Q74.3 Chronic back pain M54.9; G89.29 Anisocoria H57.02 Time Spent (min) 90
--- NOTE | 2023-06-10 10:19 | XCELERA ---
[id number] [id number]
--- NOTE | 2023-06-10 11:00 | Discharge Summary ---
Date of Service June 10, 2023 Admission HPI Per Admitting Provider Hudson Rodriguez is a 27 year old male with arthrogryposis multiplex congenita who presents to the ER with an unresponsive episode. He has no memory of the event and does not remember any preceding symptoms. Was feeling well prior. The next thing he remembers is being in the car on the way to the hospital. His father at bedside was present around the time it happened but not during the start of his change in his mental status. His father left him downstairs to turn on the shower, he heard a thud but assumed it to be the dogs as they ran up the stairs. On returning back downstairs he wound his son with decreased responsiveness, not following commands and talking nonsense saying things like "check facebook". This was only 5-10 minutes after he left his son downstairs. Approximately half way to the hospital in the car he started talking more sense. No known complete loss of consciousness. He reports currently feeling back to his baseline. The patient reports having a similar event approximately a year ago when he also came to the ER. On that visit he had been drinking alcohol. Ketones were increased, Sodium decreased. Therefore it was put down to his alcohol and marijuana use with possible some dehydration. Although notable his alcohol level was normal when he came to the ER. On that occasion he was again found by his father shortly after the change in mental status. The patient was hunched over in his wheelchair with eyes upon, having difficulty getting the right words out and drooling out of the side of his mouth. The ambulance took an hour to get to them at which point he was coming back round to normal. Specialty Data Hospitalist 06/10 morning additions He mentioned that he hasn't been drinking much water, eating, or sleeping well recently. His sleeping is a by-product of the spinal surgeries he has had in the past that prevent him from being comfortable, he naps throughout the day to a total of 6-7 hours a night. 4 hrs consistently at night. Had a recent life stressor as his grandmother, of which he is close to, is struggling with Dementia. When he "came-to" in the car ride to the ED, he mentioned no fatigue and felt normal. Discharge today. Neuro recommended [facility]. Discharge Data Consultations 06/09/23 17:03 ED Decision to Admit Stat 06/09/23 20:28 Consult Neurology Routine Supervising Physician Co-Signing Physician Notes I personally examined the patient and verified all morgan points of history and exam, discussed case, and agree with decision making with Dr Lopez and Phill Oglesby MS2 feeling ok would like to go home. neuro input appreciated/case d/w dr babcock vitals noted nad heent nc at mmm breathing unlabored no accessory muscles good effort skin no rashes no pallor or icterus seizure - keppra. risks/benefits discussed. safe/stable for home. outpt f/u
--- NOTE | 2023-06-10 17:33 | Discharge Summary ---
Date of Service June 10, 2023 Admission HPI Per Admitting Provider Hudson Rodriguez is a 27 year old male with arthrogryposis multiplex congenita who presents to the ER with an unresponsive episode. He has no memory of the event and does not remember any preceding symptoms. Was feeling well prior. The next thing he remembers is being in the car on the way to the hospital. His father at bedside was present around the time it happened but not during the start of his change in his mental status. His father left him downstairs to turn on the shower, he heard a thud but assumed it to be the dogs as they ran up the stairs. On returning back downstairs he wound his son with decreased responsiveness, not following commands and talking nonsense saying things like "check facebook". This was only 5-10 minutes after he left his son downstairs. Approximately half way to the hospital in the car he started talking more sense. No known complete loss of consciousness. He reports currently feeling back to his baseline. The patient reports having a similar event approximately a year ago when he also came to the ER. On that visit he had been drinking alcohol. Ketones were increased, Sodium decreased. Therefore it was put down to his alcohol and marijuana use with possible some dehydration. Although notable his alcohol level was normal when he came to the ER. On that occasion he was again found by his father shortly after the change in mental status. The patient was hunched over in his wheelchair with eyes upon, having difficulty getting the right words out and drooling out of the side of his mouth. The ambulance took an hour to get to them at which point he was coming back round to normal. Admission Exam Per Admitting Provider General: resting comfortably in no acute distress Head: Normocephalic and atraumatic Eyes: Normal inspection, extraocular muscles intact, no conjunctival pallor Ear, nose, throat: Normal external exam Neck: Normal range of motion Respiratory: Patient is in no respiratory distress, lungs clear to auscultation bilaterally Cardiovascular: RRR without murmur appreciated GI: soft, nontender, no guarding or rebound Extremities: Lower extremity contracture without swelling Neuro: The patient awake and alert, appropriately conversive Skin: Warm, dry, and intact Principal Diagnosis Seizure Discharge Exam Constitutional WD/WN, vitals as above Eyes PERRL, conjunctivae normal, anicteric sclerae ENMT external ear and nose normal, oropharynx normal Neck trachea midline, no thyromegaly Respiratory normal respiratory effort, lungs clear to auscultation Cardiovascular RRR, no murmur, no edema Gastrointestinal (Abdomen) normal bowel sounds, soft, nontender, no hepatosplenomegaly Musculoskeletal Not assessed due to patient condition Skin no rashes, warm and dry Discharge Data Allergies Allergy/AdvReac Type Severity Reaction Status Date / Time No Known Allergies Allergy Verified 06/09/23 17:05 Consultations 06/09/23 17:03 ED Decision to Admit Stat 06/09/23 20:28 Consult Neurology Routine Ordered Studies 06/09/23 17:57 CT head/brain wo con Stat 06/09/23 20:28 MRI Brain [MR brain seizure wo/w con] Routine Hospital Course (1) Unresponsive episode: Admitted to ED 06/09 for unresponsive episode Neuro was consulted - Suggested starting Keppra Imaging - Brain MRI: Increased size and signal left hippocampus, unclear etiology, though likely relates to patient's seizures. Head CT: No acute intracranial abnormalities Chest X-ray: No active disease in the chest. Labs - CBC, Chemistry, UA, Tox all inconclusive Started on Keppra 250mg BID Follow-up with PCP within week Total Time Total Time Spent Total Time Spent (In Minutes): <30 Discharge Plan Discharge Items Patient Disposition: Home - Self-Care Reason For Visit: UNRESPONSIVE EPISODE Discharge Diagnosis: Seizures Condition on Discharge: Good Activity: Resume your previous activity Non-emergency contact: Primary Care Provider Call non-emergency contact if: your symptoms worsen and you have a fever Follow-up/Referrals: Michael Bojorquez DO [Primary Care Provider] - Diet: Regular Addtl Attending Provider Instructions: You were admitted to the hospital for a seizure. The seizure stopped on its own. You were evaluated with an EEG and MRI. The MRI did show enlargement of a part of your brain that may be the source of the seizure. EEG did not show seizure activity. You were started on a medication called Keppra. You will take this pill every 12 hours to prevent additional seizures. A discharge summary will be sent to your primary care physician to ensure continuity of care. Please bring this discharge summary with you to your next o ffice appointment so that your provider can review it at that time. Follow-up appointments: Make a follow-up appointment with your PCP within the next week. It is very important that you follow up with them shortly after discharge from the hospital. Keep all your follow-up appointments as already scheduled. If you cannot make an appointment, notify your provider. Medications: Your medication list has been reviewed and reconciled upon discharge to ensure accuracy and continuity of care. An updated list of all your medications is included with your hospital discharge paperwork. Please review this list closely, and make note of any changes. We sent a new medication called Keppra to your pharmacy. Take Keppra 250 mg twice daily for the foreseeable future. If you have any issues filling these prescriptions, please call [phone] and ask to leave a message for Dr. Lopez. Take your medications as instructed; do not skip a dose of your medicines. Make sure all of your doctors know every medicine you are taking (including zxpq-xir-opnevko medicines, vitamins, and supplements). Call your primary care provider before taking any new medicines (including over- the-counter medicines, vitamins, and supplements), because some of these may interact with your current medications, or may make your symptoms worse. Tell your primary care provider if you cannot afford your medications. CONTACT YOUR PRIMARY CARE PROVIDER if you experience any of the following: dizziness/room spinning rashes Difficulty following your treatment plan, or difficulty taking medications CALL 911 OR GO TO THE EMERGENCY DEPARTMENT if you experience any of the following: hallucinations, severe abdominal pain/nausea/vomiting Severe chest pain, or chest pain that radiates (moves) to your jaw or arm Sudden, severe shortness of breath or difficulty breathing Thank you for allowing us to participate in your care Pending Studies at Discharge: No Stand-Alone Forms: My [facility] Vault Dragon, Smoking Cessation Medications and DC Order Prescriptions: New levetiracetam [Keppra] 250 mg Tablet 250 mg PO BID Qty: 60 0RF No Action No Known Home Medications Discharge Orders: Discharge Order (Routine); Ordered 06/10/23 Ordered By: Christina Lopez Admission Data Admit Date/Time: 06/09/23 18:10 Attending Provider: Ernie Brito Admit Provider: Guillermo Campbell Primary Care Provider: Michael Bojorquez Other Providers: Guillermo Campbell; Sandor Babcock Other Interventions: Discharge Summary Assessment (RN) Last Done: 06/10/23 12:09 Supervising Physician Co-Signing Physician Notes I personally examined the patient and verified all morgan points of history and exam, discussed case, and agree with decision making with Dr Lopez and Phill Oglesby MS2 feeling ok would like to go home. neuro input appreciated/case d/w dr babcock vitals noted nad heent nc at mmm breathing unlabored no accessory muscles good effort skin no rashes no pallor or icterus seizure - keppra. risks/benefits discussed. safe/stable for home. outpt f/u
--- NOTE | 2023-06-10 19:32 | Billing Data ---
Date of Service June 10, 2023 Coding Level of Care Code 37014 IN/OBS DISCH 30 MIN/LESS
== END 2023-06-10 12:40 | disposition home or self-care (01) ==
LOC: EDINP 12:40 → ED 12:40 → SUATTDRO 18:10 → EDINP 20:27